=== PATIENT | female | born 2000 | race Caucasian/White ===

== ENCOUNTER 2024-05-08 23:46 | Emergency (ER) | payer BC, SELFPAY ==
[2024-05-09 00:02] VITALS: BP 145/94; PULSE 88; RESP 16; TEMP 36.6; O2SAT 94; BMI 27.9
--- NOTE | 2024-05-09 00:23 | ED_ITS ---
Discharge Plan Disposition Patient Disposition: Home, Self-Care Condition: Good Prescriptions Prescriptions: New ondansetron 4 mg tablet,disintegrating 4 mg PO Q6H PRN (Reason: nausea and vomiting) Qty: 10 0RF Referrals Follow up/Referrals: Kaycee Lou DO [Primary Care Provider] - See instructions Activity Restrictions/Add. Instructions Additional Instructions/Restrictions: You were evaluated in the ER and are appropriate for discharge at this time. Drink plenty of water, I also recommend Gatorade or Pedialyte for electrolytes. Take the prescribed ondansetron if needed for nausea and vomiting. Make an appointment with primary care doctor for reevaluation. Return to an ER with new, worsening, or otherwise concerning symptoms Clinical Impressions Clinical Impression: Alcoholic intoxication, Nausea & vomiting Print Language Print Language: [place] Discharge ED Provider: Daniel Hilliard General Adult HPI General Chief complaint: Alcohol Stated complaint: ETOH Time Seen by Provider: 05/08/24 23:49 Mode of Arrival: EMS Source of Information: Patient, Spouse and EMS Limitations: No Limitations Description of Symptoms (Recalled from ER Triage Doc. by RN): pt reports to the ER by EMS. EMS recieved a call due to an intoxicated female unresponsive for 5- 10 minutes, pt was breathing but not moving or talking. pt is now alert and oriented. pt denies any pain History of Present Illness HPI narrative: 23-year-old female who states she does not have any chronic medical conditions but does take control daily presents to the ER for intoxication. Patient got today and was at [facility]. She reportedly got cut off a few hours prior to arrival however her intoxication still progressed and she became briefly unresponsive for approximately 5 to 10 minutes. Patient was breathing but reportedly not moving or talking. Fire and police were initially dispatched and they called for EMS. EMS reports by the time they arrived patient was alert, she was also oriented. Patient has had emesis. Her new is at bedside stating she had nonbloody, nonbilious emesis, no falls or injuries, patient reports no pain at this time, she does have nausea. No medications administered prior to arrival. Patient has no other complaints or concerns. Related Data Previous Rx's ?Medication ?Instructions ?Recorded ondansetron 4 mg disintegrating 4 mg PO Q6H PRN nausea and 05/09/24 tablet vomiting #10 tabs Allergies Allergy/AdvReac Type Severity Reaction Status Date / Time No Known Allergies Allergy Verified 05/09/24 00:10 [facility] Disclaimer: The information contained in this section may have been updated after the patient was seen, as this information can be updated by other users. Social History Smoking Status: Never smoker alcohol intake: current current occupational status: employed Travel in the last 8 weeks: None ROS Obtained: Yes All systems reviewed & no additional complaints except as documented Positive ROS per HPI Physical Exam General General appearance: alert, in no apparent distress and appears intoxicated Head Head exam: atraumatic and normocephalic Eye Eye exam: Present PERRL and EOMI ENT ENT exam: Present mucous membranes moist Neck Neck exam: Present normal inspection and full ROM Chest Chest inspection: Present symmetric chest wall rise Respiratory Respiratory exam: Absent respiratory distress or stridor Cardiovascular Cardiovascular exam: Present regular rate and normal rhythm Abdominal Exam Abdominal exam: Present soft; Absent distention or tenderness Extremities Exam Extremities exam: Present full ROM Neurological Exam Neurological exam: Present alert, oriented X3 and other (GCS 15, no neurologic deficits); Absent motor sensory deficit Psychiatric Psychiatric exam: Present normal affect and normal mood Skin Skin exam: Present warm and dry Medical Decision Making Medical Records Screening: Per USPSTF and CDC recommendations, given the prevalence of disease in our region, it is our hospital?s policy to screen for HIV and viral Hepatitis for all patients aged 18 and over and those with ongoing risk factors. Bert Inquiry Pt receiving controlled substance: No Vital Signs: 05/09/24 00:02 05/09/24 02:11 Temperature 97.8 F 97.6 F Temperature Source Oral Pulse Rate 85 Pulse Rate [Right] 88 Respiratory Rate 16 18 Blood Pressure 145/94 H Blood Pressure [Right Arm] 145/94 H Blood Pressure Mean [Right Arm] 111 02 Sat by Pulse Oximetry 94 L Oxygen Delivery Method Room Air Lab Data Lab Results 05/09/24 00:00: WBC 9.3, RBC 4.58, Hgb 13.7, Hct 41.9, MCV 91.5, MCH 29.8, MCHC 32.6, RDW 12.7, Plt Count 245, MPV 8.2, Neut % (Auto) 73.5, Lymph % (Auto) 21.0, Sully % (Auto) 4.4, Eos % (Auto) 0.3, Baso % (Auto) 0.9, Neut # (Auto) 6.8, Lymph # (Auto) 1.9, Sully # (Auto) 0.4, Eos # (Auto) 0.0, Baso # (Auto) 0.1 05/09/24 00:30: Sodium 142, Potassium 4.4, Chloride 111 H, Carbon Dioxide 18 L, Anion Gap 17.4 H, BUN 9, Creatinine 0.60, Estimated Creat Clear 204, Estimated GFR 124, Est GFR ( Amer) 150, Glucose 103 H, Calcium 9.4, Total Bilirubin 0.6, AST 32, ALT 20, Alkaline Phosphatase 78, Total Protein 7.4, Albumin 4.7, Globulin 2.7, Albumin/Globulin Ratio 1.7, Serum HCG, Qual Negative, Plasma/Serum Alcohol 210 H 05/09/24 01:00: HIV 1&2 Antibody Rapid Nonreactive 05/09/24 00:00 05/09/24 00:30 Orders (Tests/Meds): ED MEDICATIONS Discontinued Medications Generic Name Dose Route Start Last Admin Trade Name Dee PRN Reason Stop Dose Admin Folic Acid 1 mg 05/09/24 00:55 05/09/24 01:01 Folic Acid 1mg Tablet PO 05/09/24 00:56 1 mg ONCE ONE Administration Lactated Ringer's 1,000 mls @ 999 mls/hr 05/08/24 23:49 05/09/24 00:24 Lactated Ringer's 1000 Ml Bag IV 05/09/24 00:49 999 mls/hr .Q1H1M ONE Administration Multivitamins 10 ml/ Thiamine 1,015 mls @ 150 mls/hr 05/09/24 01:00 05/09/24 01:00 HCl 100 mg/ Magnesium Sulfate IV 05/09/24 07:45 150 mls/hr 2 gm/ Lactated Ringer's .[id number] WILLIE Administration Ondansetron HCl 4 mg 05/08/24 23:49 05/09/24 00:24 Ondansetron 4mg/2ml Vial IV 05/08/24 23:50 4 mg ONCE ONE Administration ORDERS Category Date Time Status CBC w/Auto Diff [Complete Blood Count Auto Diff] Stat Lab 05/08/24 23:49 Completed CMP [Comprehensive Metabolic Panel] Stat Lab 05/08/24 23:49 Completed Ethanol [Ethyl Alcohol] Stat Lab 05/08/24 23:49 Completed HCG Qualitative, Serum Stat Lab 05/09/24 00:30 Completed HIV (1&2) Antibody Rapid Stat Lab 05/09/24 01:00 Completed Hep C Ab with Reflex to RNA Stat Lab 05/09/24 01:00 Received Medical Decision Narrative: In summary, this 23-year-old female presents to the emergency department today with intoxication, brief episode of unresponsiveness. On initial evaluation patient is hemodynamically stable, afebrile, alert, oriented, physical exam is atraumatic, she has neurovascular intact, GCS 15, she is obviously intoxicated but has no acute complaints. She has waxing and waning nausea, abdomen is soft, nontender, nondistended, cardiopulmonary exam benign. Differential diagnosis includes but is not limited to alcohol intoxication, electrolyte abnormality, dehydration, . Based on these concerns, I ordered serum labs. Patient received IV fluids, Zofran for treatment. On reevaluation, patient has had dramatic improvement of symptoms. She no longer appears intoxicated, she is clinically sober, alert, oriented, completely neurologically intact, ambulating steadily, tolerating oral. She is appropriate for discharge at this time. I prescribed Zofran for outpatient management. I encouraged her to drink plenty of fluids including electrolyte containing drinks such as sports drinks. Patient was given instructions on symptomatic management, follow up instructions, and return precautions for the emergency department. Patient indicated understanding and was discharged in stable condition. Critical Care Critical Care Time Critical Care Time: No
[2024-05-09] MEDS: ONDANSETRON 4MG/2ML VIAL 4 MG IV (00:24)
[2024-05-09] MEDS: LACTATED RINGERS 1000ML 1,000 ML 999 ML IV (00:24)
[2024-05-09 00:50] LABS: HCG Qualitative, Serum Negative (Negative)
[2024-05-09 00:53] LABS: Alanine Aminotransferase 20 U/L (12-78); Albumin Level 4.7 g/dl (3.5-5.0); Albumin/Globulin Ratio 1.7 (1.1-1.8); Alkaline Phosphatase 78 U/L (38-126); Anion Gap 17.4 mEq/L (5-15); Aspartate Amino Transferase 32 U/L (14-36); Bilirubin,Total 0.6 mg/dl (0.2-1.3); Blood Urea Nitrogen 9 mg/dl (7-17); Calcium 9.4 mg/dl (8.4-10.2); Carbon Dioxide 18 mmol/L (22.0-30.0); Chloride 111 mmol/L (98-107); Creatinine Clearance Estimated 204 mL/min (50-200); Estimated Glomerular Filt Rate 124 ml/min (>60); GFR (African American) 150 ML/MIN (>60); Globulin 2.7 g/dL (1.3-3.2); Glucose 103 mg/dl (74-100); Potassium 4.4 mmoL/L (3.5-5.1); Sodium 142 mmol/L (136-145); Total Protein,Serum 7.4 g/dl (6.3-8.2)
[2024-05-09 00:54] LABS: Ethyl Alcohol 210 mg/dl (0-10)
[2024-05-09] MEDS: MVI, ADULT NO.1 WITH VIT K 10 ML, THIAMINE HCL 100 MG, MAGNESIUM SULFATE 2 GM in LACTAT... 150 ML IV (01:00)
[2024-05-09] MEDS: FOLIC ACID 1MG TABLET 1 MG PO (01:01)
[2024-05-09 01:03] LABS: Basophils # 0.1 K/mm3 (0-0.2); Basophils % 0.9 % (0.1-2.0); Eosinophils % 0.3 % (0.1-12.0); Hematocrit 41.9 % (37.0-47.0); Hemoglobin 13.7 g/dL (12.2-16.2); Lymphocytes # 1.9 K/mm3 (0.7-4.5); Mean Corpuscular HGB Conc 32.6 g/dL (31.8-35.4); Mean Corpuscular Hemoglobin 29.8 pg (27.0-31.2); Mean Corpuscular Volume 91.5 fl (81-99); Mean Platelet Volume 8.2 fl (7.4-10.4); Monocytes # 0.4 K/mm3 (0.1-1.0); Monocytes % 4.4 % (1.7-9.3); Neutrophils # 6.8 K/mm3 (1.8-7.8); Neutrophils % 73.5 % (37.0-80.0); Platelet Count 245 K/mm3 (142-424); Red Blood Count 4.58 M/mm3 (4.20-5.40); Red Cell Distribution Width 12.7 % (11.5-17.5); White Blood Count 9.3 K/mm3 (4.8-10.8)
[2024-05-09 02:11] VITALS: BP 145/94; PULSE 85; RESP 18; TEMP 36.4; O2SAT 100
[2024-05-09 02:23] LABS: HIV (1&2) Antibody Rapid NONREACTIVE (NONREACTIVE)
[2024-05-11 05:10] LABS: HCV Ab Non Reactive (Non Reactive)
== END 2024-05-09 02:19 | disposition home or self-care (01) ==
PROVIDERS: Emergency Provider Emergency Medicine; PCP Family Medicine
DX: F10.929 Alcohol use, unspecified with intoxication, unspecified (principal); R11.2 Nausea with vomiting, unspecified; Y90.7 Blood alcohol level of 200-239 mg/100 ml
CPT/HCPCS: 36415; 80053; 80320; 84703; 85025; 86803; 87389; 96361; 96374; 99283; G0480; J3411; J7120